=== PATIENT | male | born 1975 | race Caucasian/White ===

== ENCOUNTER 2019-07-29 09:15 | Inpatient (IN) | payer BC, MEDICAID ==
[~2019-07-29] VITALS: Ht 180.3 cm; Wt 91.6 kg
--- NOTE | 2019-07-29 09:25 | NUR ---
PATIENT TO ER #2, STAT EKG, MONITOR, SAO2, ABP
[2019-07-29 09:31] VITALS: BP_SYST 118
[2019-07-29] MEDS ORDERED: ACYC400T PO ×2 (09:31→11:41)
[2019-07-29] MEDS ORDERED: PRED10TA PO (09:31)
[2019-07-29] MEDS ORDERED: TACR0.5C17 PO (09:31)
[2019-07-29] MEDS ORDERED: [UNRECOGNIZED DRUG - OTHER] PO (09:31)
--- NOTE | 2019-07-29 09:40 | NUR ---
SUZETTE Robertson at bedside examining patient.
[2019-07-29] MEDS ORDERED: IBUPROFEN 600 MG TABLET PO ONE (09:45)
--- NOTE | 2019-07-29 09:45 | NUR ---
PT ARRIVES FROM HOME W/ C/O cp. vss AT THE MOMENT. EKG DONE AND GIVEN TO
[2019-07-29 10:07] LABS: BASOPHILS % (AUTO) 0.2 % (0.0-2.0); EOSINOPHILS % (AUTO) 0.2 % (0.0-4.0); HEMATOCRIT 42.7 % (36-54); HEMOGLOBIN 14.5 g/dL (14.0-18.0); LYMPHOCYTES # (AUTO) 2.4 K/uL (1.0-5.5); LYMPHOCYTES % (AUTO) 18.2 % (20.5-51.5); MEAN CORPUSCULAR HEMOGLOBIN 38 pg (27-31); MEAN CORPUSCULAR HGB CONC 34 % (32-36); MEAN CORPUSCULAR VOLUME 111 fL (79.0-98.0); MONOCYTES # (AUTO) 1.2 K/uL (0.0-1.0); NEUTROPHILS # (AUTO) 9.4 K/uL (1.8-7.7); NEUTROPHILS % (AUTO) 72.4 % (40.0-70.0); PLATELET COUNT (AUTO) 89 K/uL (130-430); RED BLOOD CELL COUNT(AUTO) 3.86 MIL/uL (4.2-6.2); RED CELL DISTRIBUTION WIDTH 14.3 % (9.0-15.0); WHITE BLOOD COUNT (AUTO) 12.9 K/uL (4.8-10.8)
[2019-07-29 10:24] LABS: ANION GAP 7 (5-15); CALCIUM 9.1 mg/dL (8.4-11.0); CHLORIDE 100 mmol/L (98-107); CREATININE 0.84 mg/dL (0.55-1.30); GLUCOSE 145 mg/dL (70-99); POTASSIUM 4.4 mmol/L (3.5-5.1); SODIUM SERUM 135 mmol/L (136-145); UREA NITROGEN, BLOOD 12 mg/dL (8-21)
[2019-07-29 10:27] LABS: GFR AFRICAN AMERICAN 128 mL/min (>90)
[2019-07-29] MEDS ORDERED: NACL 0.9% 1,000 ML IV ONE ×2 (10:30→11:45)
[2019-07-29 10:33] LABS: ALANINE AMINOTRANSFERASE 64 U/L (12-78); ALBUMIN 2.8 g/dL (3.4-4.8); ASPARTATE AMINOTRANSFERASE 36 U/L (10-37); TOTAL BILIRUBIN 2.4 mg/dL (0.0-1.0)
--- NOTE | 2019-07-29 10:50 | NUR ---
# 22 gauge angiocath placed to rfa. Use of asceptic technique. Opsite placed over site. Blood return noted. Blood for lab drawn from site. Flushed with 10 cc of normal saline. No evidence of infiltration noted. Patient tolerated well.
--- NOTE | 2019-07-29 11:03 | NUR ---
ns [place] AND [place]QU[place] CURRENTLY INFUSING PER MD ORDER. BLOOD CX PRIORLY DRAWN
[2019-07-29 11:06] LABS: BILIRUBIN,URINE NEGATIVE (NEGATIVE); BLOOD, URINE 1+ (NEGATIVE); CLARITY/URINE CLEAR (CLEAR); COLOR,URINE YELLOW (YELLOW); GLUCOSE,URINE NEGATIVE (NEGATIVE); KETONES,URINE TRACE (NEGATIVE); LEUKOCYTE ESTERASE ,URINE NEGATIVE (NEGATIVE); NITRITE, URINE NEGATIVE (NEGATIVE); PROTEIN URINE NEGATIVE (NEGATIVE)
[2019-07-29 11:16] LABS: BACTERIA,URINE FEW /HPF (None Seen); WBC,URINE 0-3 /HPF (0-3)
[2019-07-29] MEDS ORDERED: URSO300C7 PO (11:41)
--- NOTE | 2019-07-29 11:41 | NUR ---
Medication reconciliation completed with information provided by patient. Any prior medication reconciliation on file was reviewed and corrected.
--- NOTE | 2019-07-29 12:10 | NUR ---
PT WILL BE ADMITTED UNDER THE CARE OF DR. MOLINA TO THE MED SURG UNIT.
[2019-07-29] MEDS ORDERED: ZOLPIDEM TARTRATE 5 MG TABLET PO PRN (12:15)
[2019-07-29] MEDS ORDERED: MAGNESIUM SULFATE 50 ML IV PRN (12:15)
[2019-07-29] MEDS ORDERED: ACETAMINOPHEN 325 MG TABLET PO PRN (12:15)
[2019-07-29] MEDS ORDERED: DOCUSATE SODIUM 100 MG CAPSULE PO PRN (12:15)
[2019-07-29] MEDS ORDERED: ONDANSETRON HCL 4 MG/2 ML VIAL IVP PRN (12:15)
[2019-07-29] MEDS ORDERED: MUPIROCIN 2% TOPICAL OINTMENT 22 GM NS PRN (12:15)
[2019-07-29] MEDS ORDERED: MORPHINE 2 MG/ML INJ. SYRINGE IVP PRN (12:15)
[2019-07-29] MEDS ORDERED: LORazepam 2 MG/ML VIAL IVP PRN (12:15)
[2019-07-29] MEDS ORDERED: POTASSIUM CHLORIDE 20 MEQ TAB.PRT.SR PO PRN (12:15)
--- NOTE | 2019-07-29 12:44 | NUR ---
Patient will be admitted to care of DR. MOLINA. Admitted to MED SURG unit. Will go to room 124-B. Belongings list completed. Complete and up to date summary report printed. SBAR report to be given at bedside with opportunity for questions. BEDSIDE REPORT WILL BE GIVEN
--- NOTE | 2019-07-29 12:54 | NUR ---
ADMISSION NOTE Received patient from ER via leona, received report from Krysta RIDLEY. Patient admitted with diagnosis of Community Acquired Pneumonia. Patient oriented to hospital routine, call light, toileting and safety-patient verbalized understanding.
[2019-07-29 13:16] VITALS: BP_SYST 122
--- NOTE | 2019-07-29 13:20 | NUR ---
INITIAL NOTE Patient resting in the bed. No acute distress. Denied of pain at this time. Skin warm and dry to touch. IV intact to RAC, no redness, no swelling, no drainage, continue NS bolus from ER. Discussed the safety issue, use call light when needs help, and plan of care, verbally understanding. Safety measure maintained. Call light within reached. Bed locked in low position, side rails up. Refused bed alarm, risk and benefit explained, verbally understanding. Will continue to monitor.
[2019-07-29] MEDS ORDERED: FLU VACC QS2019-20 36MOS UP/PF 60 MCG/0.5 ML SYRINGE I.M. PRN (13:30)
--- NOTE | 2019-07-29 14:06 | NUR ---
CONSULTATION PAGED/CALLED Reason for Consultation: BILAT PNEUMONIA Person Who was Notified: DR. DIEHL Consulting Physician: DR. DIEHL Patrol Sergeant Specialty: PULMO Ordering Physician: DR. MOLINA
--- NOTE | 2019-07-29 14:25 | NUR ---
RECEIVED THE CALL FROM PHARMACY. [facility] [place] THE MEDICATION OF ASTAGRAF XL NOT AVAILABLE IN OUR PHARMACY. THE PATIENT NEEDS TO PROVIDE IT AND MAKE THE PATIENT AWAKE AND STATED THAT WILL ASK THE FAMILY TO BRING IT.
[2019-07-29] MEDS: URSODIOL 300 MG CAPSULE PO SCH ×2 (15:00→21:21)
[2019-07-29 15:05] VITALS: BP_SYST 122
[2019-07-29] MEDS: metroNIDAZOLE 500 mg/NS 100 ML IV SCH ×2 (15:14→21:22)
[2019-07-29] MEDS: NACL 0.9% 1,000 ML IV SCH (15:19)
--- NOTE | 2019-07-29 15:20 | NUR ---
NS BOLUS COMPLETED NS bolus completed. NS at 100ml/hr and Flagyl IVPB given at this time. Safety measure maintained. Call light within reached. Bed locked in low position, side rails up. Continue to monitor.
[2019-07-29] MEDS: IPRATROPIUM/ALBUTEROL SULFATE 3 ML AMPUL.NEB (DUONEB) INH SCH ×2 (16:55→20:12)
[2019-07-29 17:02] VITALS: BP_SYST 102
--- NOTE | 2019-07-29 18:30 | NUR ---
FAMILY BROUGHT THE HOME MED WHICH WAS PLACED INSIDE A MEDICATION BOX WITHOUT ORIGINAL BOTTLE AND SENT TO PHARMACY TO CHECK IF ASTAGRAF XL INSIDE THERE.
--- NOTE | 2019-07-29 18:45 | NUR ---
CLOSING NOTE Patient resting in the bed. No acute distress. IV intact, IVF infusing well. All needs met. Safety measure maintained. Call light within reached. Bed locked in low position, side rails up. Will endorse to night nurse.
--- NOTE | 2019-07-29 19:15 | NUR ---
PHARMACY BROUGHT THE HOME MED. CON[facility] [place] THERE WERE NOT MEDICATION OF ASTAGRAF XL INSIDE THE BOX. PRINT OUT ABOUT THE DESCRIPTION OF MEDICATION GIVEN TO THE PATIENT. PER PATIENT THE MEDICATION INSIDE HIS CAR WITH THE ORIGINAL BOTTLE. NURSE NURSE AWARE.
--- NOTE | 2019-07-29 19:30 | NUR ---
OPENING NOTES Patient is resting, verified that medication that he needs for the day is in the car. IVF running, no SOB, Call light within reach, bed alarm refused after patient education provided and patient verbalizes understanding, bed at lowest position. Will continue ot monitor.
--- NOTE | 2019-07-29 19:35 | NUR ---
Patient escorted with OCCUPATIONAL HEALTH MANAGER and security to the car to leave pill box and retrieve home medication by wheelchair. Patient stable, no signs of SOB. Patient did not inform nurse that he was going to smoke, OCCUPATIONAL HEALTH MANAGER and nurse was unaware that patient had wanted to smoke. Will continue to monitor and provide patient education. Will continue to monitor.
[2019-07-29 20:00] VITALS: BP_SYST 110
--- NOTE | 2019-07-29 20:50 | NUR ---
Family with patient, patient is resting, no signs of distress observed. Will continue to monitor.
[2019-07-29] MEDS: ACYCLOVIR 400 MG TABLET PO SCH (21:20)
--- NOTE | 2019-07-29 22:30 | NUR ---
Patient states that the Astagraf at home at 1AM every night and when he forgets, he takes it at 9am. Explained to patient that we will be scheduling the medication at midnight for the time.
[2019-07-29] MEDS: MORPHINE 2 MG/ML INJ. SYRINGE IVP PRN (23:38)
[2019-07-30] VITALS: BP_SYST 109
[2019-07-30] MEDS: PATIENT'S OWN CAP PO SCH ×2 (00:29→23:59)
[2019-07-30] MEDS: IPRATROPIUM/ALBUTEROL SULFATE 3 ML AMPUL.NEB (DUONEB) INH SCH ×4 (01:00→20:34)
--- NOTE | 2019-07-30 01:00 | NUR ---
Girlfriend with patient, explained to patient that medications need to be monitored at the hospital, and patient verbalizes understanding. Will continue to monitor.
--- NOTE | 2019-07-30 03:00 | NUR ---
Patient is resting, eyes closed, listening to music. No distress observed. will continue to monitor.
[2019-07-30] MEDS: NACL 0.9% 1,000 ML IV SCH ×3 (03:56→18:15)
[2019-07-30] MEDS: MORPHINE 2 MG/ML INJ. SYRINGE IVP PRN ×3 (05:08→18:59)
[2019-07-30] MEDS: metroNIDAZOLE 500 mg/NS 100 ML IV SCH ×2 (05:09→15:13)
[2019-07-30 06:12] LABS: BASOPHILS % (AUTO) 0.2 % (0.0-2.0); EOSINOPHILS % (AUTO) 0.3 % (0.0-4.0); HEMATOCRIT 39.2 % (36-54); HEMOGLOBIN 13.3 g/dL (14.0-18.0); LYMPHOCYTES # (AUTO) 1.6 K/uL (1.0-5.5); LYMPHOCYTES % (AUTO) 24.5 % (20.5-51.5); MEAN CORPUSCULAR HEMOGLOBIN 38 pg (27-31); MEAN CORPUSCULAR HGB CONC 34 % (32-36); MEAN CORPUSCULAR VOLUME 112 fL (79.0-98.0); MONOCYTES # (AUTO) 0.5 K/uL (0.0-1.0); MONOCYTES % (AUTO) 7.9 % (1.7-9.3); NEUTROPHILS # (AUTO) 4.3 K/uL (1.8-7.7); PLATELET COUNT (AUTO) 84 K/uL (130-430); RED BLOOD CELL COUNT(AUTO) 3.49 MIL/uL (4.2-6.2); RED CELL DISTRIBUTION WIDTH 14.7 % (9.0-15.0); WHITE BLOOD COUNT (AUTO) 6.4 K/uL (4.8-10.8)
--- NOTE | 2019-07-30 06:13 | NUR ---
CLOSING NOTES Patient is resting, no signs of distress observed, pain addressed and PRN medications provided throughout shift. IVF running, dressings c/d/i. Call light within reach, used call light throughout shift, bed alarm refused after patient verbalized understanding of bed alarm, bed at lowest position. All needs met throughout shift.
[2019-07-30 06:16] LABS: CALCIUM 8.4 mg/dL (8.4-11.0); CREATININE 0.68 mg/dL (0.55-1.30); POTASSIUM 3.5 mmol/L (3.5-5.1)
--- NOTE | 2019-07-30 07:29 | NUR ---
OPENING NOTE Patient resting in the bed. No acute distress. AAO x 4. Denied of pain. Skin warm and dry to touch. IV intact to`RAC, no redness, no swelling, no drainage. On NS at 100ml/hr, infusing well. Discussed the safety issue, use call light when needs help, and plan of care, verbally understanding. Safety measure maintained. Call light within reached. Bed locked in low position, side rails up. Refused bed alarm, risk and benefit explained, verbally understanding. Will continue to monitor.
[2019-07-30 07:46] VITALS: BP_SYST 100
[2019-07-30] MEDS ORDERED: ASTAGRAF PO SCH (09:00)
[2019-07-30] MEDS ORDERED: PREDNISONE 10 MG TABLET PO SCH (09:00)
[2019-07-30] MEDS ORDERED: TACROLIMUS PO SCH (09:00)
[2019-07-30] MEDS: LEVOFLOXACIN 500 MG/D5W 100 ML IV SCH (09:34)
[2019-07-30] MEDS: ACYCLOVIR 400 MG TABLET PO SCH ×2 (09:34→21:57)
[2019-07-30] MEDS: URSODIOL 300 MG CAPSULE PO SCH ×3 (09:34→21:58)
[2019-07-30 09:45] LABS: NEUTROPHILS % (AUTO) 67.1 % (40.0-70.0)
[2019-07-30] MEDS ORDERED: predniSONE 1 MG TABLET PO SCH (09:45)
--- NOTE | 2019-07-30 09:50 | NUR ---
SEEN AND EXAMINED BY CATIE MUNGUIA WITH ORDER RECEIVED.
--- NOTE | 2019-07-30 09:54 | NUR ---
VERIFY THE DOSE OF PREDNISONE Noted the dose of Prednisone 1mg was ordered. Verify the dosage to the patient. Per patient he never took 1mg that should be 10mg. Dr. Macias notify and change the dose. Pharmacy communicated.
[2019-07-30] MEDS ORDERED: PREDNISONE 10 MG TABLET PO ONE (10:00)
[2019-07-30 12:00] VITALS: BP_SYST 118
--- NOTE | 2019-07-30 13:25 | NUR ---
NEW IV INSERTED Per radiology, needs an IV access for gauge 20 for IV contrast. Started a new IV to right arm, gauge 20 with good blood return, flushed with 5ml NS, attempted x 2. Procedure tolerated well.
[2019-07-30] MEDS ORDERED: IOHEXOL 350 mgI/mL, 150 ML INFUS..BTL IV ONE (14:32)
--- NOTE | 2019-07-30 14:32 | NUR ---
OFF UNIT FOR CTA OF CHEST/THORAX IN STABLE CONDITION VIA WHEELCHAIR.
--- NOTE | 2019-07-30 14:50 | NUR ---
BACK TO UNIT FROM RADIOLOGY IN STABLE CONDITION VIA WHEELCHAIR.
[2019-07-30 16:00] VITALS: BP_SYST 119
--- NOTE | 2019-07-30 17:15 | NUR ---
SEEN AND EXAMINED BY JB IVY.
--- NOTE | 2019-07-30 18:55 | NUR ---
CLOSING NOTE Patient resting in the bed. No acute distress. PRN pain med given as needed. Skin warm and dry to touch. IV intact no redness, no swelling, no drainage. IVF infusing well. All needs met. Safety measure maintained. Call light within reached. Bed locked in low position, side rails up. Refused bed alarm, risk and benefit explained, verbally understanding. Will endorse to night nurse.
--- NOTE | 2019-07-30 20:08 | NUR ---
OPENING NOTES Pt and endorsement received from day shift. Pt is AAOx4, lying in bed. Pt on IVF of NS at 100ml/hr and infusing well on right AC G20 and saline lock on right AC G22. No complains of pain or discomfort at this time. No signs of acute distress or SOB noted. Encouraged to use call light when needed. Safety precautions in place with 2 side rails up, wheels locked, and bed in lowest level. Call light with pt. Will continue to monitor.
--- NOTE | 2019-07-30 21:17 | NUR ---
SEEN [facility]AM[facility]
[2019-07-30 21:56] VITALS: BP_SYST 118
[2019-07-30] MEDS: PIPERACILLIN/TAZO 4.5GM/DEX-IS 100 ML IV SCH (21:58)
--- NOTE | 2019-07-30 22:00 | NUR ---
ROUNDS All due meds given and pt tolerated well. IVF infusing well. No complains pain and no signs of acute distress noted. Girlfriend at bedside. Safety precautions in place and call light with pt. Will continue to monitor.
[2019-07-31] VITALS (7 sets, daily range): BP systolic 105–124
[2019-07-31] MEDS: IPRATROPIUM/ALBUTEROL SULFATE 3 ML AMPUL.NEB (DUONEB) INH SCH ×4 (00:24→19:05)
[2019-07-31] MEDS: MORPHINE 2 MG/ML INJ. SYRINGE IVP PRN ×3 (00:49→20:20)
--- NOTE | 2019-07-31 00:49 | NUR ---
PAIN MED Pt complained of back pain with a scale of 8/10. Vital signs taken and recorded. Morphine 2mg IVP given as ordered. Educated on safety and side effects like dizziness and drowsiness, pt verbalized understanding. Safety precautions in place and call light with pt. Will continue to monitor.
[2019-07-31] MEDS: NACL 0.9% 1,000 ML IV SCH ×2 (03:01→15:15)
--- NOTE | 2019-07-31 03:50 | NUR ---
ROUNDS Pt is resting in bed with both eyes closed, with visible chest rise and fall with non-labored breathing noted. Pt is easily arousable. No signs of acute distress or SOB noted. IVF infusing well. No needs at this time. Safety precautions in place and call light with pt. Will continue to monitor.
[2019-07-31] MEDS: PIPERACILLIN/TAZO 4.5GM/DEX-IS 100 ML IV SCH ×3 (05:08→22:52)
--- NOTE | 2019-07-31 06:09 | NUR ---
CONSULT: CONSULT FOR DR. SWEENEY I SPOKE WITH [employer] EXCHANGE REQUESTING CONSULT: DR. MOLINA BANK COURIER PHONE NUMBER: [phone]
[2019-07-31 06:35] LABS: CALCIUM 8.3 mg/dL (8.4-11.0); CREATININE 0.69 mg/dL (0.55-1.30); POTASSIUM 3.2 mmol/L (3.5-5.1)
[2019-07-31 06:36] LABS: BASOPHILS % (AUTO) 0.2 % (0.0-2.0); EOSINOPHILS % (AUTO) 0.2 % (0.0-4.0); HEMATOCRIT 36.4 % (36-54); HEMOGLOBIN 12.4 g/dL (14.0-18.0); LYMPHOCYTES # (AUTO) 1.7 K/uL (1.0-5.5); LYMPHOCYTES % (AUTO) 41.7 % (20.5-51.5); MEAN CORPUSCULAR HEMOGLOBIN 38 pg (27-31); MEAN CORPUSCULAR HGB CONC 34 % (32-36); MEAN CORPUSCULAR VOLUME 112 fL (79.0-98.0); MONOCYTES # (AUTO) 0.4 K/uL (0.0-1.0); MONOCYTES % (AUTO) 8.7 % (1.7-9.3); NEUTROPHILS % (AUTO) 49.2 % (40.0-70.0); PLATELET COUNT (AUTO) 80 K/uL (130-430); RED BLOOD CELL COUNT(AUTO) 3.25 MIL/uL (4.2-6.2); RED CELL DISTRIBUTION WIDTH 14.8 % (9.0-15.0)
--- NOTE | 2019-07-31 06:39 | NUR ---
CLOSING NOTES Pt is resting in bed with both eyes closed, with visible chest rise and fall with non-labored breathing noted. Pain med was given at 0616hours. No complains of pain or discomfort at this time. No signs of acute distress or SOB noted. IVF is infusing well. All needs attended throughout the shift. Safety precautions in place with 2 side rails up, wheels locked, and bed in lowest level. Call light with pt. Will endorse to day shift nurse.
--- NOTE | 2019-07-31 07:20 | NUR ---
received patient aao x 4. lungs bilaterally clear. abdomen soft and non distended. vitals signs stable. afebrile. has iv access on the right ac #20 with normal saline at 100cc/hr infusing on well. bed low position, alarmed and locked. call lights within reach. instructed to call for assistance. patient ambulatory. goes to the bathroom many times.
--- NOTE | 2019-07-31 08:00 | NUR ---
CALLED RADIOLOGY DEPARTMENT SAID WILL COME SOON.
--- NOTE | 2019-07-31 08:27 | NUR ---
INFORMED PATIENT THAT [facility] WILL COME TO DO ULTRASOUND OF ABDOMEN. AND NOT TO EAT YET. LATER AFTER THE ULTRASOUND DONE.
--- NOTE | 2019-07-31 09:30 | NUR ---
ultrasound of the abdomen done at the bedside. Dr Trinh came and evaluate the patient. and patient requested to be in other room due to not able to sleep for two days, roommate loud snoring
[2019-07-31] MEDS: ACYCLOVIR 400 MG TABLET PO SCH ×2 (10:02→20:13)
[2019-07-31] MEDS: PREDNISONE 10 MG TABLET PO SCH (10:02)
[2019-07-31] MEDS: URSODIOL 300 MG CAPSULE PO SCH ×4 (10:02→22:57)
[2019-07-31] MEDS: LEVOFLOXACIN 500 MG/D5W 100 ML IV SCH (10:02)
--- NOTE | 2019-07-31 11:00 | NUR ---
patient went to room 119-A, as requested. patient stable. assists on adls.
--- NOTE | 2019-07-31 14:52 | NUR ---
sleeping at this time. stable. no complained made so far.
--- NOTE | 2019-07-31 15:21 | NUR ---
DUE ANTIBIOTIC GIVEN. MADE COMFORTABLE.
--- NOTE | 2019-07-31 19:10 | NUR ---
CHANGE OF SHIFT; pt. awake, up in bed, no acute distress. IVF infusing. will assess later. call light within reach.
--- NOTE | 2019-07-31 20:15 | NUR ---
NOTES: Vs checked. noted pt. asking for pain medication for his lower back, denies any chest pain.
--- NOTE | 2019-07-31 20:20 | NUR ---
NOTES: pt. medicated with IV Morphine for c/o lower back pain. repositioned self for comfort. IVF patent. ambulates to the restroom. call light within reach.
--- NOTE | 2019-07-31 22:00 | NUR ---
NOTES: pt. resting, noted relief from pain, still awake, checking his cell phone.
[2019-07-31] MEDS: PATIENT'S OWN CAP PO SCH (23:01)
--- NOTE | 2019-08-01 | NUR ---
NOTES: due medication given. pt. calm, needs attended. call light within reach.
[2019-08-01] MEDS: IPRATROPIUM/ALBUTEROL SULFATE 3 ML AMPUL.NEB (DUONEB) INH SCH ×2 (00:30→19:20)
[2019-08-01 01:20] VITALS: BP_SYST 122
--- NOTE | 2019-08-01 02:30 | NUR ---
NOTES: pt. sleeping. condition observed.
--- NOTE | 2019-08-01 05:00 | NUR ---
NOTES: condition unchanged. pt. sleeping.
[2019-08-01] MEDS: PIPERACILLIN/TAZO 4.5GM/DEX-IS 100 ML IV SCH ×3 (05:07→21:03)
[2019-08-01] MEDS: NACL 0.9% 1,000 ML IV SCH ×3 (05:08→21:07)
--- NOTE | 2019-08-01 06:40 | NUR ---
CLOSING NOTES; pt. remain asleep. IVF patent anf infusing continuously with IV antibiotic in progress. no complaints manifested. for further care and assistance. call light within reach. will endorse to day shift.
[2019-08-01 06:44] LABS: BASOPHILS % (AUTO) 0.1 % (0.0-2.0); EOSINOPHILS % (AUTO) 0.3 % (0.0-4.0); HEMATOCRIT 38.4 % (36-54); LYMPHOCYTES # (AUTO) 1.8 K/uL (1.0-5.5); LYMPHOCYTES % (AUTO) 49.7 % (20.5-51.5); MEAN CORPUSCULAR HEMOGLOBIN 38 pg (27-31); MEAN CORPUSCULAR HGB CONC 34 % (32-36); MEAN CORPUSCULAR VOLUME 112 fL (79.0-98.0); MONOCYTES # (AUTO) 0.3 K/uL (0.0-1.0); MONOCYTES % (AUTO) 8.6 % (1.7-9.3); NEUTROPHILS # (AUTO) 1.5 K/uL (1.8-7.7); NEUTROPHILS % (AUTO) 41.3 % (40.0-70.0); PLATELET COUNT (AUTO) 89 K/uL (130-430); RED BLOOD CELL COUNT(AUTO) 3.42 MIL/uL (4.2-6.2); RED CELL DISTRIBUTION WIDTH 14.9 % (9.0-15.0); WHITE BLOOD COUNT (AUTO) 3.7 K/uL (4.8-10.8)
[2019-08-01 06:47] LABS: CALCIUM 8.7 mg/dL (8.4-11.0); CREATININE 0.72 mg/dL (0.55-1.30); POTASSIUM 3.9 mmol/L (3.5-5.1)
[2019-08-01 08:00] VITALS: BP_SYST 105
--- NOTE | 2019-08-01 08:00 | NUR ---
RN OPENING NOTE PATIENT IS RESTING IN BED, ALERT ORIENTED X4, PATIENT WAS ASSESSED, VITAL SIGNS ARE STABLE. PATIENT DENIES PAIN OR DISCOMFORT. PATIENT'S BED AT LOW POSITION AND CALL LIGHT WITHIN REACH, WILL CONTINUE TO MONITOR.
[2019-08-01] MEDS: PREDNISONE 10 MG TABLET PO SCH (08:50)
[2019-08-01] MEDS: URSODIOL 300 MG CAPSULE PO SCH ×3 (08:51→20:49)
[2019-08-01] MEDS: ACYCLOVIR 400 MG TABLET PO SCH ×2 (08:52→20:49)
[2019-08-01] MEDS: LEVOFLOXACIN 500 MG/D5W 100 ML IV SCH (09:05)
[2019-08-01] MEDS: MORPHINE 2 MG/ML INJ. SYRINGE IVP PRN ×2 (09:05→18:45)
--- NOTE | 2019-08-01 10:00 | NUR ---
RN NOTE PATIENT WAS SERVED HIS BREAKFAST. PATIENT IS INDEPENDENT EATING. SETTING THE TRAY WAS DONE FOR HIM, PATIENT COMPLAINED OF PAIN IN HIS LOWER BACK, PATIENT WAS GIVEN HIS PRN PAIN MED, WELL HIS OTHER MEDICATION, WILL CONTINUE TO MONITOR.
[2019-08-01 12:00] VITALS: BP_SYST 126
--- NOTE | 2019-08-01 12:00 | NUR ---
RN NOTE PATIENT WAS SERVED HIS LUNCH, PATIENT DENIES PAIN OR DISCOMFORT, WILL CONTINUE TO MONITOR.
--- NOTE | 2019-08-01 14:00 | NUR ---
RN NOTE PATIENT WAS EDUCATED ABOUT FALL PREVENTION AND HIS DISEASE PROCESS
[2019-08-01 16:00] VITALS: BP_SYST 119
--- NOTE | 2019-08-01 16:00 | NUR ---
RN NOTE PATIENT WAS HELPED TO THE BATHROOM
--- NOTE | 2019-08-01 19:00 | NUR ---
RN CLOSING NOTE PATIENT IS RESTING IN BED, PATIENT WAS SERVED HIS DINNER, PATIENT HAS PAIN IN HIS LOWER BACK AND WAS GIVEN HIS PRN MORPHINE IVP. PATIENT'S BED AT LOW POSITION AND CALL LIGHT WITHIN REACH, WILL ENDORSE TO NEXT SHIFT.
--- NOTE | 2019-08-01 19:15 | NUR ---
CHANGE OF SHIFT; pt. awake, checking his cell phone, was just medicated with IV Morphine for his pain before arrival. call light within reach. IV infusing on rt. antecubital.
[2019-08-01 20:00] VITALS: BP_SYST 132
--- NOTE | 2019-08-01 20:00 | NUR ---
NOTES: vs checked. pt. resting, ambulates to the restroom. IVF patent via rt. antecubital. on room air, no shortness of breath.
--- NOTE | 2019-08-01 21:15 | NUR ---
NOTES: pt. bothered with his IV site, verbalized its hurting, checked for patency, with good blood return, new transparent dressing applied, removed the other IV site on left forearm, not needed. c/o sticky tape , paper tape used. due po meds taken well. pt. needs attended.
[2019-08-01] MEDS: PATIENT'S OWN CAP PO SCH (23:29)
--- NOTE | 2019-08-01 23:30 | NUR ---
NOTES: pt. still awake, waiting for his breathing treatment and need his pain med after around 1 am.
[2019-08-02] MEDS: IPRATROPIUM/ALBUTEROL SULFATE 3 ML AMPUL.NEB (DUONEB) INH SCH ×2 (00:30→07:25)
[2019-08-02 01:04] VITALS: BP_SYST 127
[2019-08-02] MEDS: MORPHINE 2 MG/ML INJ. SYRINGE IVP PRN ×2 (01:20→08:55)
--- NOTE | 2019-08-02 01:30 | NUR ---
NOTES: pt. was medicated by charge nurse Hilaria for c/o lower back pain. pt. needs attended.
--- NOTE | 2019-08-02 03:00 | NUR ---
NOTES: urine specimen sent to lab for Legionella.
--- NOTE | 2019-08-02 04:12 | NUR ---
NOTES: pt. sleeping when checked. condition observed.
[2019-08-02] MEDS: PIPERACILLIN/TAZO 4.5GM/DEX-IS 100 ML IV SCH (05:37)
[2019-08-02] MEDS: NACL 0.9% 1,000 ML IV SCH (05:39)
--- NOTE | 2019-08-02 05:43 | NUR ---
NOTES: pt. remain sleeping. IV antibiotic started, main IVF infusing. no complaints.
[2019-08-02 06:13] LABS: BASOPHILS % (AUTO) 0.3 % (0.0-2.0); EOSINOPHILS % (AUTO) 0.6 % (0.0-4.0); HEMOGLOBIN 13.3 g/dL (14.0-18.0); LYMPHOCYTES # (AUTO) 2.1 K/uL (1.0-5.5); LYMPHOCYTES % (AUTO) 49.8 % (20.5-51.5); MEAN CORPUSCULAR HEMOGLOBIN 38 pg (27-31); MEAN CORPUSCULAR HGB CONC 34 % (32-36); MEAN CORPUSCULAR VOLUME 111 fL (79.0-98.0); MONOCYTES # (AUTO) 0.5 K/uL (0.0-1.0); MONOCYTES % (AUTO) 11.9 % (1.7-9.3); NEUTROPHILS # (AUTO) 1.6 K/uL (1.8-7.7); NEUTROPHILS % (AUTO) 37.4 % (40.0-70.0); PLATELET COUNT (AUTO) 96 K/uL (130-430); RED BLOOD CELL COUNT(AUTO) 3.51 MIL/uL (4.2-6.2); RED CELL DISTRIBUTION WIDTH 14.4 % (9.0-15.0); WHITE BLOOD COUNT (AUTO) 4.2 K/uL (4.8-10.8)
[2019-08-02 06:22] LABS: CALCIUM 8.6 mg/dL (8.4-11.0); CREATININE 0.8 mg/dL (0.55-1.30); POTASSIUM 3.6 mmol/L (3.5-5.1)
[2019-08-02 07:50] VITALS: BP_SYST 118
--- NOTE | 2019-08-02 07:55 | NUR ---
INITIAL ROUNDS Received pt AAOx4, no s/s resp distress, no c/o pain or discomfort. IVF infusing well to RAc at ordered rate with no s/s infiltration to site. Plan of care for the day reviewed with pt-pt verbalized his understanding-pt hopes to be discharged home. Pain management, PNA disease process, skin and safety discussed-teach back done.
[2019-08-02] MEDS: PREDNISONE 10 MG TABLET PO SCH (08:41)
[2019-08-02] MEDS: ACYCLOVIR 400 MG TABLET PO SCH (08:42)
[2019-08-02] MEDS: URSODIOL 300 MG CAPSULE PO SCH (08:42)
[2019-08-02] MEDS ORDERED: DOXY100C PO (09:19)
[2019-08-02 11:34] VITALS: BP_SYST 118
--- NOTE | 2019-08-02 12:10 | NUR ---
PATIENT DISCHARGED HOME Patient given medication reconciliation form and D/C instructions. Exit Care on PNA explained and provided. Patient verbalized his understanding. MD discussed with patient the results and treatment provided. Ambulatory with steady gait for discharge to home. Patient in stable condition, ID band removed. IV catheter removed, intact and dressing applied, no active bleeding. Rx of Doxycycline explained and given via ERX. Patient educated on pain management. All belongings sent with patient. Patient left floor ambulatory to private vehicle in no distress.
== END 2019-08-02 12:10 | disposition home or self-care (01) | DRG 194 ==
LOC: SED 09:15 → SMU 11:43
PROVIDERS: ADMIT General Practice; ATTEND General Practice
DX: J18.9 Pneumonia, unspecified organism (principal); N39.0 Urinary tract infection, site not specified; Z94.81 Bone marrow transplant status; Z92.21 Personal history of antineoplastic chemotherapy; D69.6 Thrombocytopenia, unspecified; F17.210 Nicotine dependence, cigarettes, uncomplicated; Z79.52 Long term (current) use of systemic steroids; Z71.6 Tobacco abuse counseling; Z85.6 Personal history of leukemia; Z92.3 Personal history of irradiation
CPT/HCPCS: 36415; 71045; 71046-TC; 71275; 76700-TC; 80048; 80053; 81000-TC; 83036; 83605; 83735-TC; 84484; 85025; 86710; 87040-TC; 87081; 87086; 87449; 94640; 96365; 99291; J1956; J2270; J2543; J3490; J7030; J7512; Q9967